=== PATIENT | female | born 1970 | race Caucasian/White ===

== ENCOUNTER → 2024-12-23 14:03 | Outpatient (CLI) | payer OTHER, SELFPAY ==
--- NOTE | ~2024-12-23 | XR_ITS ---
EXAMINATION: XR chest 2V DATE: 12/23/2024 14:26 INDICATION: Cough and fever TECHNIQUE: PA and lateral views of the chest were obtained. COMPARISON: None FINDINGS: Hyperexpansion lungs with flattening of the diaphragm and increased retrosternal clear space suggesti ve but not diagnostic of COPD. There are patchy airspace opacities with some bronchial wall thickenin g at the left lower lung zone and in the right infrahilar region. No pulmonary edema, pleural effusio n or pneumothorax. Heart size is normal. Old fracture deformity anterior right second rib. IMPRESSION: 1. Opacities in the left lower lung zone and right infrahilar region suspicious for pneumonia. 2. Hyperexpansion lungs suggestive but not diagnostic of COPD. Reviewed, dictated and finalized at location B.
--- OUTSIDE RECORDS SUMMARY | 2024-12-23 15:06 | XMS_ITS | Clinical Summary ---
Author Organization [facility] Address [address] [place] [address] Phone Care Team Providers Care Management Lecturer Name Role Phone Pollo Luu MD Primary Care Provider [phone] Allergies No known active allergies Medications lisinopril (PRINIVIL) 20 mg tablet Take 20 mg by mouth daily. Active fluoxetine HCl (PROZAC ORAL) Take 20 mg by mouth . Active NAPROXEN ORAL Take by mouth. Active teriflunomide (AUBAGIO ORAL) Take 14 mg by mouth . Active oxyCODONE-aceta minophen (PERCOCET) 5-325 mg tabletIndicatio ns:Pain in mandible Take 1 Tablet by mouth Post-Proc Once for 1 dose 1 TAB PO PRN WHILE IN ASU. 2 Tablet 12/17/2018 Active oxyCODONE-aceta minophen (PERCOCET) 5-325 mg tabletIndicatio ns:Pain in mandible Take 1 Tablet by mouth every 4 hours as needed for moderate pain. Max Daily Amount: 6 Tablets 20 Tablet 12/17/2018 4:09 PM CDT 12/17/2018 Active Active Problems No known active problems Social History Tobacco Use Types Packs/Day Years Used Date Smoking Tobacco: Every Day Cigarettes Last attempted to quit: 09/25/2018 Smokeless Tobacco: Never Comments:light smoker 1 pack per week Alcohol Use Standard Drinks/Week Comments No 0 (1 standard drink = 0.6 oz pur e alcohol) Comments No Sex and Gender Information Value Date Recorded Sex Assigned at Not on file Legal Sex Female 1:53 PM EMERGENCY ROOM RN Gender Identity Not on file Sexual Orientation Not on file Last Filed Vital Signs Vital Sign Reading Time Taken Comments Blood Pressure 150/86 12/17/2018 3:00 PM CDT Pulse 63 12/17/2018 3:00 PM CDT Temperature 36.4 C (97.5 F) 12/17/2018 3:00 PM CDT Respiratory Rate 16 12/17/2018 3:00 PM CDT Oxygen Saturation 96% 12/17/2018 3:00 PM CDT Inhaled Oxygen Concentration - - Weight 52.6 kg (116 lb) 12/17/2018 11:36 AM CDT Height 165.1 cm (5' 5 ) 12/17/2018 11:36 AM CDT Body Mass Index 19.3 12/17/2018 11:36 AM CDT Plan of Treatment Health Maintenance Due Date Last Done Comments DTAP/TDAP/TD VACCINES (1 - Tdap) 1990 HEPATITIS B VACCINES (1 of 3 - 19+ 3-dose series) 07/27 HPV/Cotest (21-29) 1992 CERVICAL CANCER SCREENING 2001 HPV/Cotest (30-65) 2001 PAP SMEAR 2001 BREAST CANCER SCREENING 2011 COLORECTAL SCREENING 2016 Colorectal Cancer Screening 2016 FIT-DNA Q 3 years 2016 FIT/FOBT Q 1 year 2016 Flex Sig/CT Colonography Q 5 years 2016 ZOSTER VACCINE (1 of 2) 2021 INFLUENZA VACCINE (#1) 2024 Medical Devices Implanted Type Area Snuff Maker Device Identifier Shelf Expiration Date Model / Serial / Lot Right Wrist Plate Explanted Type Area Snuff Maker Device Identifier Shelf Expiration Date Model / Serial / Lot Plate Ti Rgd [id number] - Ssterilized Feb 5 19 Implanted:Qty: 1 on 10/01/2018 by Pio Olguin MD at [facility] Explanted:Qty: 1 on 12/17/2018 by Annabelle Traylor DDS at [facility] Mesh N/A: Face KLS GERRY LP --- 09 / STERILIZED FEB 5 19 / LOAD 28 Screw Mmf Maxdrv 2.0x12mm [id number] - [id number] Implanted:Qty: 4 on 10/01/2018 by Pio Olguin MD at [facility] Explanted:Qty: 4 on 12/17/2018 by Annabelle Traylor DDS at [facility] Screw Face KLS GERRY LP [id number] / / Screw Mmf Maxdrv 2.0x16mm [id number] - [id number] Implanted:Qty: 4 on 10/01/2018 by Pio Olguin MD at [facility] Explanted:Qty: 4 on 12/17/2018 by Annabelle Traylor DDS at [facility] Screw Face ROSI GARRETT LP [id number] / / Screw Sd Maxdr 2.0x5mm [id number] - Ssterilized Sep 30 Implanted:Qty: 4 on 10/01/2018 by Pio Olguin MD at [facility] Explanted:Qty: 4 on 12/17/2018 by Annabelle Traylor DDS at [facility] Screw N/A: Face ROSI GARRETT LP [id number] / STERILIZED SEP 30 / LOAD 28 Insurance INDIVIDUAL EXCHANGE [id number] [employer] Advance Directives For more information, please contact: [phone] * Full Code (Latest Code Status on File) Date Activated Date Inactivated Comments 12/17/2018 11:52 AM 12/17/2018 5:37 PM * Full Code Date Activated Date Inactivated Comments 12/17/2018 11:34 AM 12/17/2018 11:52 AM * Full Code Date Activated Date Inactivated Comments 10/01/2018 3:35 PM 10/02/2018 12:42 AM Care Teams Management Lecturer Relationship Specialty Start Date End Date Pollo Luu MD [id number] [place] [address] PCP - General Internal Medicine 12/10/18
--- OUTSIDE RECORDS SUMMARY | 2024-12-23 15:06 | XMS_ITS | Encounter Summary ---
Author Organization [facility] Healthcare Address [address] [place] [address] Care Team Providers Care Utilities Estimator And Drafter Name Role Phone Pollo Luu MD Primary Care Provider + Encounter Details Date Type Department Care Team (Late st Contact Info) Description 02/20/2022 Telephone [facility] Radiology [address] [place] [address] Ruthann Horn, [facility] [address] [place] [address] Social History Tobacco Use Types Packs/Day Years Used Date Smoking Tobacco: Every Day Cigarettes 0.5 5 Smokeless Tobacco: Current Alcohol Use Standard Drinks/Week Comments Yes 0 (1 standard drink = 0.6 oz pur e alcohol) Social AUDIT-C Answer Date Recorded Q1: How often do you have a drink containing alcohol? 4 or more times a week 02/06/2022 Q2: How many drinks containi ng alcohol do you have on a typical day when you are drinking? 1 or 2 Q3: How often do you have si x or more drinks on one occasion? Monthly 02/06/2022 Comments Unknown Sex and Gender Information Value Date Recorded Sex Assigned at Not on file Legal Sex Female 11:54 PM PHOTO STUDIO ASSISTANT Gender Identity Not on file Sexual Orientation Not on file documented as of this encounter Plan of Treatment Not on file documented as of this encounter Visit Diagnoses Not on filedocumented in this encounter Care Teams Utilities Estimator And Drafter Relationship Specialty Start Date End Date Pollo Luu MD [address] [facility] [address] [place] [address] PCP - General 10/23/16 documented as of this encounter
--- OUTSIDE RECORDS SUMMARY | 2024-12-23 15:07 | XMS_ITS | Encounter Summary ---
Author Organization [facility] Address [address] [place] [address] Phone Care Team Providers Care Document Clerk Name Role Phone Pollo Luu MD Primary Care Provider + Encounter Details Date Type Department Care Team (Late st Contact Info) Description 08/07/[address] [facility] Multiple Sclerosis [address] [place] [phone] Pinky Hammond MD [address] [place] [address] Social History Tobacco Use Types Packs/Day Years Used Date Smoking Tobacco: Every Day Cigarettes 0.2 8 Smokeless Tobacco: Current Alcohol Use Standard Drinks/Week Comments Yes 0 (1 standard drink = 0.6 oz pur e alcohol) Social Comments Unknown Sex and Gender Information Value Date Recorded Sex Assigned at Not on file Legal Sex Female 11:54 PM SOLAR RESOURCE ASSESSOR Gender Identity Not on file Sexual Orientation Not on file documented as of this encounter Plan of Treatment Not on file documented as of this encounter Visit Diagnoses Not on filedocumented in this encounter Care Teams Document Clerk Relationship Specialty Start Date End Date Pollo Luu MD [address] [facility] [address] [place], [place] [id number] PCP - General 10/23/16 documented as of this encounter
--- OUTSIDE RECORDS SUMMARY | 2024-12-23 15:07 | XMS_ITS | Encounter Summary ---
Author Organization [facility] Address [address] [place] [address] Phone Care Team Providers Care Hand Cigar Making Supervisor Name Role Phone Pollo Luu MD Primary Care Provider + Encounter Details Date Type Department Care Team (Late st Contact Info) Description 01/09/2018 Orders Only [facility] ProviderEsther MD [address] [place] [id number] Social History Tobacco Use Types Packs/Day Years Used Date Smoking Tobacco: Never Assessed Comments Unknown Sex and Gender Information Value Date Recorded Sex Assigned at Not on file Legal Sex Female 11:54 PM LEGAL SUPPORT ANALYST Gender Identity Not on file Sexual Orientation Not on file documented as of this encounter Plan of Treatment Not on file documented as of this encounter Procedures Procedure Name Priority Date/Time Associated Diagnosis Comments DISCHARGE LABORATORY CUMULATIVE REPORT 01/09/2018 12:00 AM CDT documented in this encounter Results * DISCHARGE LABORATORY CUMULATIVE REPORT (01/09/2018 12:00 AM CDT) Narrative 01/09/2018 12:00 AM CDT Ordered by an unspecified provider. Historical Provider LAB BLOOD ORDERABLES Laila l Result documented in this encounter Visit Diagnoses Not on filedocumented in this encounter Care Teams Hand Cigar Making Supervisor Relationship Specialty Start Date End Date Pollo Luu MD [address] [facility] [address] [place] [address] PCP - General 10/23/16 documented as of this encounter
--- OUTSIDE RECORDS SUMMARY | 2024-12-23 15:07 | XMS_ITS | Continuity of Care Document ---
Author Organization [facility] Address [address] [place] [address] Phone Care Team Providers Care Hip Hop Dance Instructor Name Role Phone Kat ANSARI FACS, Jaquan Osorio Unavailab le Allergies, Adverse Reactions, Alerts Substance Reaction Status Criticality No Known Allergies Active No Inform ation Medications Medication Instructions Dosage Effective Dates (start - stop) Status Comments tobramycin 0.3 % eye drops instill 1 drop in the right eye QID x 4 days - Active Aubagio 14 mg tablet take 1 tablet by or al route every day 14 MG - Active paroxetine 20 mg tablet take 1 tablet by oral route every day 20 MG - Active colestipol 1 gram tablet take 2 tablet b y oral route 2 times every day swallowing whole with any liquid. Do not crush, chew and/or divide. 2 G - Active lisinopril 40 mg tablet take 1 tablet by oral route every day 40 MG - Active cholecalciferol (vitamin D3) 50 mcg (2,000 unit) capsule take 1 by oral route every day 1 - Active Procedures Procedure Date Office/outpatient Visit, New Advance Directives Directive Yes / No Effective Date File Name No Information Encounters Encounter Description Practice Location Reason(s) For Visit Diagnoses Date Provider Providers Copied on Encounter Office/outpat ient Visit, [facility], [address], [place], [place], [id number], [place] tel:[phone] [place] Cornea (chief complaint) Abrasion of right cornea, initial encounter Kat Jaquan. [address], [place], [place], [id number], [place]. tel:[phone] Referring Provider: Jaquan Pompa, [address], [place], [address]. tel:[phone] Family History Family Member Type Diagnosis Age At Onset Problem Family history of Diabetes evon waters Payers Payer name Insurance type Covered alliance party ID Kalen abreu(s) [facility] Commercial CI [id number] Social History Type Description Quantity Date Captured Comments Alcohol Use Details Caffeine Use Details Tobacco Use Status Occasional cigarette smoker Smoking Status Unknown if ever smoked Smoking Tobacco Use Details Cigarette: Age Started: 46 Cigarette: No Details Available Sex Female Chief Complaint And Reason For Visit From encounter dated '10/10/2022 13:30'. Cornea (chief complaint). Description: The 52 year old patient presents for evaluation of Cornea inthe right eye. Pt was burning leaves on Saturday, she bent down to pick something up and she got poked in the temporal side of her right eye. Pt states it looks like it is filling with fluid/is red, itis sore (not painful), and started getting a little blurry today.Pt also has poison kaylah on her nosex 1 wk. Reason For Referral Reason For Referral No Information Plan Of Treatment Date Type Action Status Goal Tobacco cessation counseling completed Patient Education Corneal Scratches: Care Instructions completed History Of Present Illness Encounter Date Complaint History Of Prese nt Illness Cornea The 52 year old patient presents for evaluation of Cornea in the right eye. Pt was burning leaves on Saturday, she bent down to pick something up and she got poked in the temporal side of her right eye. Pt states it looks like it is filling with fluid/is red, it is sore (not painful), and started getting a little blurry today.Pt also has poison kaylah on her nose x 1 wk. Functional Status Date Functional Assessmen t No Information Instructions Date Instruction Additional Infor sintia Impression/Plan Assessments Type Assessment Date assessment Abrasion of right cornea, initia l encounter Patient Care Teams Name Effective Dates (start - stop) Status Members No Information
--- OUTSIDE RECORDS SUMMARY | 2024-12-23 15:07 | XMS_ITS | Referral Summary ---
Author Organization [facility] Address [address] [place] [address] Care Team Providers Care Water Service Supervisor Name Role Phone Pollo Luu MD Primary Care Provider + Allergies No known active allergies Medications colestipoL (COLESTID) 1 gram tabletIndicatio ns:Collagenous colitis Take 1 tablet (1 g total) by mouth daily Do not take other medications within an hour before or 4 hours after. 30 tablet 3 3 Active amLODIPine (NORVASC) 5 mg tablet Take 1 tablet (5 mg total) by mouth daily 90 tablet 3 3 Active Additional Information Patient not taking.Reported on 08/27/2023 PARoxetine (PAXIL) 20 mg tablet TAKE 1 TABLET(20 MG) BY MOUTH EVERY MORNING 30 tablet 5 3 Active Additional Information Patient not taking.Reported on 08/27/2023 cholecalciferol (VITAMIN D-3) 5,000 unit tablet Take 1 tablet (5,000 Units total) by mouth daily Active lisinopriL (PRINIVIL,ZESTR IL) 40 mg tablet Take 1 tablet (40 mg total) by mouth daily 90 tablet 3 4 Active teriflunomide 7 mg tablet Take 14 mg by mouth daily 60 tablet 5 4 Active teriflunomide (Aubagio) 14 mg tablet Take 1 tablet (14 mg total) by mouth daily 90 tablet 3 4 Active Active Problems Problem Noted Date Diagnosed Date Chronic diarrhea 02/06/2022 Overview (02/06/2022): Added automatically from request for surgery [id number] Medication monitoring encounter 10/30/2021 Mixed anxiety and depressive disorder 10/30/2021 History of COVID-19 10/30/2021 Insomnia 08/31/2021 Assessment & Plan (08/31/2021 4:30 PM PART TIME): Trial trazodone HS Clinical diagnosis of COVID-19 08/08/2021 Arthritis 03/16/2021 Hypertension 03/16/2021 Assessment & Plan (08/31/2021 4:30 PM PART TIME): Renal artery US Continue lisinopril 20mg Add clonidine 0.1mg BID BP daily and report in 1 week Decrease caffeine, tobacco and alcohol intake Stop benadryl, trial trazodone Osteoporosis without current pathological fractu re 03/16/2021 Multiple sclerosis 06/16/2019 Vitamin D deficiency 06/16/2019 Spasticity 06/16/2019 Abnormal MRI 11/10/2018 High risk medication use 11/10/2018 Resolved Problems Problem Noted Date Diagnosed Date Resolved Date Fall with injury 11/10/2018 08/31/2021 Social History Tobacco Use Types Packs/Day Years Used Date Smoking Tobacco: Every Day Cigarettes 0.5 5 Smokeless Tobacco: Current Alcohol Use Standard Drinks/Week Comments Yes 0 (1 standard drink = 0.6 oz pur e alcohol) Social AUDIT-C Answer Date Recorded Q1: How often do you have a drink containing alc ohol? 2-3 times a week 03/13/2022 Q2: How many drinks containi ng alcohol do you have on a typical day when you are drinking? 1 or 2 03/13/2022 Q3: How often do you have si x or more drinks on one occasion? Never 03/13/2022 Comments No Sex and Gender Information Value Date Recorded Sex Assigned at Not on file Legal Sex Female 11:54 PM PART TIME Gender Identity Not on file Sexual Orientation Not on file Last Filed Vital Signs Vital Sign Reading Time Taken Comments Blood Pressure 165/122 08/27/2023 11:09 AM PART TIME Pulse 81 08/27/2023 11:09 AM PART TIME Temperature 36.2 C (97.2 F) 03/13/2022 1:03 PM CDT Respiratory Rate 16 03/13/2022 1:15 PM CDT Oxygen Saturation 98% 01/23/2023 3:28 PM CDT Inhaled Oxygen Concentration - - Weight 54.4 kg (120 lb) 09/21/2023 1:37 PM PART TIME Height 165.1 cm (5' 5 ) 09/21/2023 1:37 PM PART TIME Body Mass Index 19.97 09/21/2023 1:37 PM PART TIME Plan of Treatment Not on file Medical Devices Implanted Type Area Diesel Machinist Device Identifier Shelf Expiration Date Model / Serial / Lot Plate Right: Wrist Procedures Procedure Name Priority Date/Time Associated Diagnosis Comments COLONOSCOPY 03/13/2022 12:32 PM CDT SCREENING MAMMOGRAM Routine 09/17/2012 9 :26 AM PART TIME from Last 3 Months or Most Recently Relevant to Health Maintenance Results * COLONOSCOPY (03/13/2022 12:32 PM CDT) Anatomical Region Laterality Modality Other Narrative Procedure Note Mindi Powers MD - 03/13/2022 12:32 PM CDT ENDOSCOPY LAB Patient Name: Negrita Pink Procedure Date: 03/13/2022 12:32 PM Date of : 1970 Admit Type: Outpatient Age: 51 Gender: Female Attending MD: Mindi Powers M.D. Room: [facility] ENDOSCOPY ROOM 01 Note Status: Finalized Procedure: Colonoscopy Indications: This is the patient's first colonoscopy, Chronic diarrhea Providers: Mindi Powers M.D. Referring MD: Pinky Hammond M.D. Medicines: Monitored Anesthesia Care Complications: No immediate complications. Estimated Blood Loss: Estimated blood loss was minimal. Procedure: Pre-Anesthesia Assessment: - Prior to the procedure, a History and Physicalwas performed, and patient medications, allergies and sensitivities were reviewed. The patient'stolerance of previous anesthesia was reviewed. - Immediately prior to administration ofmedications, the patient was re-assessed for adequacy to receive sedatives. The benefits, risks and alternatives of theprocedure and sedation were discussed and informed consentwas obtained. All questions were answered. Please referto the signed informed consent document in the medical record. The scope was passed under direct vision.The [id number] was introduced through the anusand advanced to 20 cm into the ileum. The colonoscopywas performed without difficulty. The quality of thebowel preparation was evaluated using the BBPS (BostonBowel Preparation Scale) with scores of: Right Colon = 3, Transverse Colon = 3 and Left Colon = 3 (entiremucosa seen well with no residual staining, smallfragments of stool or opaque liquid). The total BBPS score equals 9. The bowel preparation used was GoLYTELYvia split dose instruction. Findings: The perianal and digital rectal examinations were normal. The terminal ileum appeared normal. The colon (entire examined portion) appeared normal. Biopsies for histology were taken with a cold forceps from the entire colon for evaluation of microscopic colitis. The retroflexed view of the distal rectum and anal verge was normaland showed no anal or rectal abnormalities. Impression: - The examined portion of the ileum was normal. - The entire examined colon is normal. Biopsied. - The distal rectum and anal verge are normal on retroflexion view. Recommendation: - Await pathology results. - Return to GI clinic as previously scheduled. - Repeat colonoscopy in 10 years for screening purposes. Electronically signed by Mindi Powers MD Mindi Powers M.D. 03/13/2022 12:58:27 PM Number of Addenda: 0 Note Initiated On: 03/13/2022 12:32 PM us Mindi Powers MD ENDOSCOPY PROCEDURES Final Resu lt * Screening Mammogram (09/17/2012 9:26 AM PART TIME) Anatomical Region Laterality Modality Breast N/A Mammography 09/17/2012 9:26 AM PART TIME Narrative 09/18/2012 11:40 AM PART TIME JAVIER TROTTER MD, PHD FINAL REPORT ACC# Date Time Exam [id number] Sep 17, 2012 09:26:00 [facility] [id number] Screening Mamm Bilat Technologist(s): Milagros Santillan; ; EXAMINATION: Mammogram Findings: A Full-Field Digital Screening Mammogram was performed. Views obtained: bilateral craniocaudal; bilateral mediolateral oblique. Computer Aided Detection was performed with [employer], version 9.2. The present examination has been compared to prior imaging studies performed at [facility] on 04/26/2010 and 04/11/2010. The breasts are heterogeneously dense which could obscure a lesion on mammography. Patient has personal history of left breast excisional biopsy. There is no suspicious abnormality in the right breast. IMPRESSION: Finding in the left breast is benign. Annual screening mammography is recommended. OVERALL FINAL ASSESSMENT: BI-RADS CATEGORY 2: Benign. Requested By: Pinky Hammond M.D. Dictated By: JAVIER TROTTER MD, PHD on Sep 18 2012 11:40A This document has been electronically signed by: JAVIER TROTTER MD, PHD on Sep 18 2012 11:40A Procedure Note Provider, MD Esther - 12/21/2016 JAVIER TROTTER MD, PHD FINAL REPORT ACC# Date Time Exam [id number] Sep 17, 2012 09:26:00 [facility] [id number] Screening Mamm Bilat Technologist(s): Milagros Santillan; ; EXAMINATION: Mammogram Findings: A Full-Field Digital Screening Mammogram was performed. Views obtained: bilateral craniocaudal; bilateral mediolateral oblique. Computer Aided Detection was performed with [employer], version 9.2. The present examination has been compared to prior imaging studies performed at [facility] on 04/26/2010 and 04/11/2010. The breasts are heterogeneously dense which could obscure a lesion on mammography. Patient has personal history of left breast excisional biopsy. There is no suspicious abnormality in the right breast. IMPRESSION: Finding in the left breast is benign. Annual screening mammography is recommended. OVERALL FINAL ASSESSMENT: BI-RADS CATEGORY 2: Benign. Requested By: Pinky Hammond M.D. Dictated By: JAVIER TROTTER MD, PHD on Sep 18 2012 11:40A This document has been electronically signed by: JAVIER TROTTER MD, PHD on Sep 18 2012 11:40A Historical Provider IMKhadijah MAMMO PROCEDURES Laila l Result from Last 3 Months or Most Recently Relevant to Health Maintenance Insurance [facility] CHOICE PLUS [facility] PLUS [facility] CHOICE PLUS [facility] CHOICE PLUS [place] [phone] * Guarantor: KIRSTY SALGUERO Account Type Relation to Patient Date of Phone Billing Address Workers Comp Employer Advance Directives For more information, please contact: [phone] * Full Code (Latest Code Status on File) Date Activated Date Inactivated Comments 03/13/2022 11:20 AM 03/13/2022 5:53 PM Care Teams Water Service Supervisor Relationship Specialty Start Date End Date Pollo Luu MD [address] [address] PCP - General 10/23/16
--- OUTSIDE RECORDS SUMMARY | 2024-12-23 15:07 | XMS_ITS | Clinical Summary ---
Author Organization [facility] al Address [address] [place] [address] Care Team Providers Care Shingles Roofer Helper Name Role Phone Pollo Luu MD Primary [...] (02/06/2022): Added automatically from request for surgery [id number] Medication monitoring encounter 10/30/2021 Mixed anxiety and depressive disorder 10/30/2021 History of COVID-19 10/30/2021 Insomnia 08/31/2021 Assessment & Plan (08/31/2021 4:30 PM [employer]IC [employer]ICE OFFICER): Trial trazodone HS Clinical diagnosis of COVID-19 08/08/2021 Arthritis 03/16/2021 Hypertension 03/16/2021 Assessment & Plan (08/31/2021 4:30 PM TRAFFIC [employer]ICE OFFICER): Renal artery US Continue lisinopril 20mg Add [...] Resolved Date Fall with injury 11/10/2018 08/31/2021 Surgical History Surgery Date Site/Laterality Comments WRIST FRACTURE SURGERY 08/26/2014 - 08/25/2015 Right MANDIBLE FRACTURE SURGERY 09/26/2018 - 10/23/2018 hardware removal 12/12 SECTION x4 Medical History Medical History Date Comments Current smoker Multiple sclerosis (HCC) Mood disorder Closed fracture of right proximal humerus 2018 Primary hypertension 09/25/2018 COVID-19 virus detected 06/2020 Family History Medical History Relation Name Comments Alcohol abuse Brother Heart attack Brother Diabetes Father Heart attack Father Diabetes Mother Heart attack Mother Alcohol abuse Sister 1 Relation Name Status Comments Brother Daughter 1 Alive Daughter 2 Alive Father Mother Sister 1 Alive Sister 2 Alive Sister 3 Alive Son 1 Alive Son 2 Alive Son 3 Alive Social History Tobacco Use Types Packs/Day Years [...] on file Legal Sex Female 11:54 PM [employer] Gender Identity Not on file Sexual Orientation Not on file Obstetrics History Last Filed Vital Signs Vital Sign Reading Time Taken Comments Blood Pressure 165/122 08/27/2023 11:09 AM [employer]ICER Pulse 81 08/27/2023 11:09 AM [employer]ICER Temperature 36.2 C (97.2 F) 03/13/2022 1:03 PM CDT Respiratory Rate 16 03/13/2022 1:15 PM CDT Oxygen Saturation 98% 01/23/2023 3:28 PM CDT Inhaled Oxygen Concentration - - Weight 54.4 kg (120 lb) 09/21/2023 1:37 PM [employer] Height 165.1 cm (5' 5 ) 09/21/2023 1:37 PM [employer] OFFICER Body Mass Index 19.97 09/21/2023 1:37 PM [employer]IC [employer] OFFICER Plan of Treatment Health Maintenance Due Date Last Done Comments Cervical Cancer Screening 1971 Depression Screening 1971 Hepatitis C Screening 1971 DTaP/Tdap/Td Vaccine (1 - Tdap) 1982 Hepatitis B Screening 1989 Regular Well Visit/Exam 18-64 1989 Pneumococcal vaccine <65 (1 of 2 - PCV) 1990 Breast Cancer Screening-Mammogram 09/17/2013 013 Zoster Vaccine (1 of 2) 2021 Influenza Vaccine (#1) 2024 Colon Cancer Screening-Colonoscopy 03/13/20322021 Medical Devices Implanted Type Area Probation Agent Device Identifier Shelf Expiration Date Model / Serial / Lot Plate Right: Wrist Procedures Procedure Name Priority Date/Time Associated Diagnosis Comments COLONOSCOPY 03/13/2022 12:32 PM CDT SCREENING MAMMOGRAM Routine 09/17/2012 9 :26 AM TRAFFIC [employer]ICE OFFICER from Last 3 Months or Most Recently Relevant to Health Maintenance Results * COLONOSCOPY (03/13/2022 12:32 PM CDT) Anatomical Region Laterality Modality Other Narrative Procedure Note Mindi Powers MD - 03/13/2022 12:32 PM CDT ENDOSCOPY LAB Patient Name: Negrita Pink Procedure Date: 03/13/2022 12:32 PM Date of : 1970 Admit Type: Outpatient Age: 51 Gender: Female Attending MD: Mindi Powers M.D. Room: [facility] ENDOSCOPY ROOM 01 Note Status: Finalized [...] The scope was passed under direct vision.The [id number] was introduced through the anusand advanced to [...] lt * Screening Mammogram (09/17/2012 9:26 AM TRAFFIC POLICE OFFICER) Anatomical Region Laterality Modality Breast N/A Mammography 09/17/2012 9:26 AM TRA[employer]IC POLICE OFFICER Narrative 09/18/2012 11:40 AM TRAFFIC POLICE OFFICER JAVIER TROTTER MD, PHD FINAL REPORT ACC# Date Time Exam [id number] Sep 17, 2012 09:26:00 [facility] [id number] Screening Mamm Bilat Technologist(s): Milagros Santillan; ; EXAMINATION: Mammogram Findings: A Full-Field Digital Screening Mammogram was performed. Views obtained: bilateral craniocaudal; bilateral mediolateral oblique. Computer Aided Detection was performed with R2, version 9.2. The present examination has been compared to prior imaging studies performed at [facility] on 04/26/2010 and 04/11/2010. The breasts are [...] PHD FINAL REPORT ACC# Date Time Exam [id number] Sep 17, 2012 09:26:00 [facility] [id number] Screening Mamm Bilat Technologist(s): Milagros Santillan; ; EXAMINATION: Mammogram Findings: A Full-Field Digital Screening Mammogram was performed. Views obtained: bilateral craniocaudal; bilateral mediolateral oblique. Computer Aided Detection was performed with R2, version 9.2. The present examination has been compared to prior imaging studies performed at [facility] on 04/26/2010 and 04/11/2010. The breasts are [...] on Sep 18 2012 11:40A Historical Provider MD AVERY MAMMO PROCEDURES Laila l Result from Last 3 Months or Most Recently Relevant to Health Maintenance Insurance [facility] [employer] [facility]/PPO Address: [place] [address] [facility] HMO/PPO Address: [id number] [place] [address] [facility] [employer] [facility] HMO/PPO Address: [address] [place] [address] [facility] [employer] [facility] HMO/PPO Address: [address] [place] [address] * Guarantor: KIRSTY SALGUERO Account Type Relation to Patient Date of Phone Billing Address Workers Comp Employer Advance Directives For more information, please contact: [phone] * Full Code (Latest Code Status on File) Date Activated Date Inactivated Comments 03/13/2022 11:20 AM 03/13/2022 5:53 PM Care Teams Shingles Roofer Helper Relationship Specialty Start Date End Date Pollo Luu MD [id number] [facility] [address] [place] [address] PCP - General 10/23/16
== END ==
DX: R91.8 Other nonspecific abnormal finding of lung field (principal); R50.9 Fever, unspecified; R05.9 Cough, unspecified
CPT/HCPCS: 71046